=== PATIENT | female | born 1955 | race Caucasian/White ===

== ENCOUNTER 2018-01-26 15:47 | Inpatient (IN) | payer OTHER ==
[~2018-01-26] VITALS: Ht 161.3 cm; Wt 108.2 kg
[2018-01-26 17:09] LABS: Anion Gap 11 (5-15); Blood Urea Nitrogen 11 mg/dL (7-18); Calcium 8.3 mg/dL (8.5-10.1); Carbon Dioxide 21 mmol/L (21-32); Chloride 105 mmol/L (98-107); Glucose 121 mg/dL (74-106); Lipase 148 U/L (73-393); Magnesium 2.2 mg/dL (1.6-2.6); Potassium 3.7 mmol/L (3.5-5.1); Sodium 137 mmol/L (136-145)
[2018-01-26 17:11] LABS: BUN/Creatinine Ratio 14.9; GFR African American 102 mL/min; GFR Non-African American 84 mL/min
[2018-01-26 17:13] LABS: Basophils # (auto) 0 uL; Basophils % (auto) 0.3 % (0.0-2.0); Eosinophils # (auto) 0 uL; Hematocrit 39.3 % (36.0-46.0); Lymphocytes # (auto) 1.1 uL; Monocytes # (auto) 0.9 uL; Red Cell Distribution Width 19.3 % (11.8-14.3)
[2018-01-26 17:15] LABS: Eosinophils % (auto) 0.2 % (0.0-7.0); Hemoglobin 12.6 g/dL (12.2-16.2); Lymphocytes % (auto) 9.2 % (10.0-50.0); Mean Corpuscular Hemoglobin 25.4 pg (28.0-32.0); Mean Corpuscular Hgb Conc. 32.2 g/dL (32.0-36.0); Mean Corpuscular Volume 78.9 fL (80.0-100.0); Monocytes % (auto) 7.6 % (0.0-12.0); Neutrophils % (auto) 82.7 % (37.0-80.0); Nucleated Red Blood Cells % 0.1 %; Platelet Count (auto) 301 10^3/uL (140-450); Red Blood Cells 4.98 10^6/uL (4.0-5.20); White Blood Cell 12.1 10^3/uL (4.4-10.8)
[2018-01-26 17:17] LABS: Alanine Aminotransferase 24 U/L (13-56); Alkaline Phosphatase 109 U/L (45-117); Amylase 33 U/L (25-115); Aspartate Aminotransferase 16 U/L (15-37); Bilirubin, Total 0.7 mg/dL (0.2-1.0); Total Protein 7.1 g/dL (6.4-8.2)
[2018-01-26] MEDS ORDERED: SODIUM CHLORIDE 0.9% 1,000 ML IVB ONE (17:35)
[2018-01-26 18:50] LABS: INR 0.91 (0.9-1.15); Partial Thromboplastin Time 29.2 sec (23.78-33.04); Prothrombin Time 9.8 sec (9.27-12.13)
[2018-01-26] MEDS ORDERED: IOHEXOL 350 MG/ML 100ML IJ ONE (20:12)
[2018-01-26] MEDS ORDERED: ACETAMINOPHEN 325 MG TAB PO ONE (20:30)
[2018-01-26] MEDS ORDERED: ENOXAPARIN SOD 120 MG/0.8 ML SYRINGE SC ONE (21:30)
[2018-01-26] MEDS ORDERED: ALBUTEROL SULF 2.5 MG/0.5ML(0.5%) NEB SOLN NEB PRN (21:30)
[2018-01-26] MEDS ORDERED: ONDANSETRON HCL 4 MG/2 ML VIAL IV PRN (21:30)
[2018-01-26] MEDS ORDERED: TEMAZEPAM 15 MG CAP PO PRN (21:30)
[2018-01-26] MEDS ORDERED: HYDROcodone-ACET 5/325MG TAB PO PRN (21:30)
[2018-01-26] MEDS ORDERED: NITROGLYCERIN 0.4 MG SL TAB SL PRN (21:30)
[2018-01-26] MEDS ORDERED: MORPHINE SULFATE 4 MG/ML SYR/VIAL IV PRN (21:30)
[2018-01-26 21:33] LABS: Urine Bacteria NONE SEEN /hpf (None Seen); Urine Blood Negative /uL (Negative); Urine Mucus FEW (None Seen); Urine Specific Gravity 1.031 (1.001-1.035); Urine WBC 3 /hpf (0 - 5)
[2018-01-26] MEDS: ENOXAPARIN SOD 120 MG/0.8 ML SYRINGE SC SCH (22:00)
[2018-01-26] MEDS: FAMOTIDINE 20 MG TAB PO SCH (22:00)
[2018-01-26] MEDS ORDERED: WARFARIN SODIUM 10 MG TAB PO ONE (22:15)
[2018-01-26] MEDS ORDERED: traMADol HCL 50 MG TAB PO ONE (22:30)
[2018-01-26 22:54] VITALS: BP 133/76
[2018-01-27] MEDS: ACETAMINOPHEN 325 MG TAB PO PRN (01:32)
[2018-01-27 01:46] VITALS: BP 129/67
[2018-01-27] MEDS ORDERED: CALC1TAB64 PO (02:15)
[2018-01-27] MEDS ORDERED: OMEP20TA PO (02:15)
[2018-01-27] MEDS ORDERED: CYAN100L PO (02:15)
[2018-01-27] MEDS ORDERED: RANI-185 PO (02:15)
[2018-01-27] MEDS ORDERED: traMADol HCL 50 MG TAB PO ONE (03:00)
[2018-01-27 05:00] VITALS: BP 124/77
[2018-01-27 06:50] LABS: INR 0.95 (0.9-1.15); Partial Thromboplastin Time 34.1 sec (23.78-33.04); Prothrombin Time 10.2 sec (9.27-12.13)
[2018-01-27 07:08] LABS: Albumin 2.7 g/dL (3.4-5.0); BUN/Creatinine Ratio 12.9; Calcium 8.2 mg/dL (8.5-10.1); Total Protein 6.6 g/dL (6.4-8.2)
[2018-01-27 07:29] LABS: Basophils # (auto) 0 uL; Eosinophils # (auto) 0 uL; Eosinophils % (auto) 0.5 % (0.0-7.0); Hemoglobin 12.1 g/dL (12.2-16.2); Red Blood Cells 4.72 10^6/uL (4.0-5.20)
[2018-01-27 07:31] LABS: Basophils % (auto) 0.3 % (0.0-2.0); Hematocrit 37.9 % (36.0-46.0); Lymphocytes % (auto) 11.9 % (10.0-50.0); Mean Corpuscular Hemoglobin 25.7 pg (28.0-32.0); Mean Corpuscular Volume 80.2 fL (80.0-100.0); Monocytes # (auto) 0.7 uL; Monocytes % (auto) 8.5 % (0.0-12.0); Neutrophils # (auto) 6.8 uL; Neutrophils % (auto) 78.8 % (37.0-80.0); Nucleated Red Blood Cells % 0.1 %; Platelet Count (auto) 257 10^3/uL (140-450); White Blood Cell 8.7 10^3/uL (4.4-10.8)
[2018-01-27 09:00] VITALS: BP 119/68
[2018-01-27] MEDS: traMADol HCL 50 MG TAB PO PRN ×2 (10:38→21:54)
[2018-01-27] MEDS: ENOXAPARIN SOD 120 MG/0.8 ML SYRINGE SC SCH ×2 (10:39→21:54)
[2018-01-27] MEDS: FAMOTIDINE 20 MG TAB PO SCH ×2 (10:42→21:54)
[2018-01-27 12:00] VITALS: BP 123/76
[2018-01-27] MEDS ORDERED: LIDOCAINE 1% HCL (LOCAL ANESTH.) INJ 20ML MDV ONE (13:42)
[2018-01-27 17:00] VITALS: BP 124/72
[2018-01-27] MEDS ORDERED: WARFARIN SODIUM 10 MG TAB PO ONE (17:00)
[2018-01-27 22:00] VITALS: BP 127/67
[2018-01-28 05:00] VITALS: BP 130/73
[2018-01-28] MEDS: ACETAMINOPHEN 325 MG TAB PO PRN ×2 (06:40→18:30)
[2018-01-28] MEDS: traMADol HCL 50 MG TAB PO PRN ×2 (06:40→18:30)
[2018-01-28 06:57] LABS: INR 1.91 (0.9-1.15); Prothrombin Time 19.7 sec (9.27-12.13)
[2018-01-28 09:00] VITALS: BP 104/79
[2018-01-28] MEDS ORDERED: ENOXAPARIN SOD 100 MG/1 ML SYRINGE SC SCH (10:00)
[2018-01-28] MEDS: FAMOTIDINE 20 MG TAB PO SCH ×2 (10:25→21:46)
[2018-01-28 12:35] VITALS: BP 116/71
[2018-01-28] MEDS: APIXABAN 5 MG TAB PO SCH ×2 (12:45→21:46)
[2018-01-28 17:00] VITALS: BP 121/78
[2018-01-28] MEDS ORDERED: LORATADINE 10 MG TAB PO PRN (18:30)
[2018-01-28 21:44] VITALS: BP 135/84
[2018-01-29] MEDS: ACETAMINOPHEN 325 MG TAB PO PRN ×2 (00:20→22:58)
[2018-01-29 05:00] VITALS: BP 133/72
[2018-01-29 09:00] VITALS: BP 130/78
[2018-01-29] MEDS ORDERED: LORATADINE 10 MG TAB PO SCH (10:00)
[2018-01-29] MEDS: ALBUTEROL SULF 2.5 MG/0.5ML(0.5%) NEB SOLN NEB SCH ×2 (10:29→22:24)
[2018-01-29] MEDS: traMADol HCL 50 MG TAB PO PRN ×2 (11:00→20:20)
[2018-01-29] MEDS: APIXABAN 5 MG TAB PO SCH ×2 (11:18→22:41)
[2018-01-29] MEDS: FAMOTIDINE 20 MG TAB PO SCH ×2 (11:19→20:18)
[2018-01-29 13:24] VITALS: BP 133/77
[2018-01-29 17:01] VITALS: BP 138/87
[2018-01-29 19:40] VITALS: BP 138/87
[2018-01-29 22:00] VITALS: BP 144/84
[2018-01-29] MEDS ORDERED: PANTOPRAZOLE 40 MG TAB PO SCH (22:05)
[2018-01-30] MEDS: traMADol HCL 50 MG TAB PO PRN ×2 (02:21→09:31)
[2018-01-30 05:00] VITALS: BP 139/81
[2018-01-30] MEDS: ALBUTEROL SULF 2.5 MG/0.5ML(0.5%) NEB SOLN NEB SCH (06:43)
[2018-01-30] MEDS: APIXABAN 5 MG TAB PO SCH (09:30)
[2018-01-30 13:00] VITALS: BP 138/84
== END 2018-01-30 16:36 | disposition home or self-care (01) | DRG 176 ==
LOC: ER 15:59 → TELE 16:00 → TELE-WESTW 23:35
PROVIDERS: ADMIT Nurse Practitioner; ATTEND Family Medicine
DX: I26.99 Other pulmonary embolism without acute cor pulmonale (principal); J98.11 Atelectasis; Z68.41 Body mass index [BMI] 40.0-44.9, adult; K21.9 Gastro-esophageal reflux disease without esophagitis; E66.01 Morbid (severe) obesity due to excess calories; E86.0 Dehydration; I25.10 Atherosclerotic heart disease of native coronary artery without angina pectoris; Z79.01 Long term (current) use of anticoagulants; Z82.49 Family history of ischemic heart disease and other diseases of the circulatory system; Z90.49 Acquired absence of other specified parts of digestive tract; Z93.3 Colostomy status; Z88.8 Allergy status to other drugs, medicaments and biological substances; Z88.2 Allergy status to sulfonamides
CPT/HCPCS: 36415; 71046; 71275; 80053; 81001; 82150; 83690; 83735; 83880; 84484; 85025; 85379; 85610; 85730; 93005; 93306; 93970; 94640; 94761; 96360; J2001

== ENCOUNTER 2022-03-12 16:19 | Emergency (ER) | payer OTHER ==
[~2022-03-12] VITALS: Ht 160 cm; Wt 108.6 kg
[~2022-03-12 16:19] MED LIST: CALC1TAB64 PO; CYAN100L PO; OMEP20TA PO; RANI-185 PO
[2022-03-12 18:06] LABS: Basophils # (auto) 0.1 10 ^3/uL (0-0.2); Eosinophils # (auto) 0.5 10 ^3/uL (0-0.8); Eosinophils % (auto) 7.9 % (0.0-7.0); Hematocrit 37.3 % (36.0-46.0); Hemoglobin 11.6 g/dL (12.2-16.2); Lymphocytes # (auto) 1.3 10 ^3/uL (0.4-5.4); Lymphocytes % (auto) 20.1 % (10.0-50.0); Mean Corpuscular Hemoglobin 23.3 pg (28.0-32.0); Mean Corpuscular Hgb Conc. 31.2 g/dL (32.0-36.0); Mean Corpuscular Volume 74.6 fL (80.0-100.0); Monocytes # (auto) 0.8 10 ^3/uL (0-1.3); Monocytes % (auto) 12.2 % (0.0-12.0); Neutrophils # (auto) 3.8 10 ^3/uL (1.6-8.6); Neutrophils % (auto) 58.8 % (37.0-80.0); Red Cell Distribution Width 15.8 % (11.8-14.3); White Blood Cell 6.6 10^3/uL (4.4-10.8)
[2022-03-12 18:21] LABS: Albumin 3.3 g/dL (3.4-5.0); BUN/Creatinine Ratio 27.9; Calcium 8.5 mg/dL (8.5-10.1); Potassium 3.9 mmol/L (3.5-5.1)
[2022-03-12 18:24] LABS: Bilirubin, Total 0.6 mg/dL (0.2-1.0); Total Protein 6.6 g/dL (6.4-8.2)
[2022-03-12 20:30] VITALS: BP 152/83
== END 2022-03-12 20:38 | disposition home or self-care (01) ==
LOC: ER 16:19
DX: I50.9 Heart failure, unspecified (principal); R42 Dizziness and giddiness; K21.9 Gastro-esophageal reflux disease without esophagitis; Z98.51 Tubal ligation status
CPT/HCPCS: 36415; 70450; 80053; 83605; 83880; 84484; 85025

== ENCOUNTER 2022-09-10 13:37 | Emergency (ER) | payer OTHER ==
[~2022-09-10] VITALS: Ht 160 cm; Wt 93.0 kg
[2022-09-10 14:37] VITALS: BP 147/78
[2022-09-10 15:05] LABS: Urine Bacteria MANY /hpf (None Seen); Urine Blood Negative /uL (Negative); Urine Mucus FEW (None Seen); Urine Specific Gravity 1.031 (1.001-1.035); Urine WBC 16 /hpf (0 - 5)
[2022-09-10] MEDS ORDERED: KETOROLAC TROMETH 60MG/2ML VIAL IM ONE (15:30)
[2022-09-10] MEDS ORDERED: TRAM-297 PO (16:06)
[2022-09-10] MEDS ORDERED: CIPR-173 PO (16:06)
== END 2022-09-10 16:13 | disposition home or self-care (01) ==
LOC: ER 13:37
DX: M51.36 Other intervertebral disc degeneration, lumbar region (principal); N39.0 Urinary tract infection, site not specified
CPT/HCPCS: 72131; 81001; 96372; 99285; J1885

== ENCOUNTER 2022-09-24 18:39 | Emergency (ER) | payer OTHER ==
[~2022-09-24] VITALS: Ht 160 cm; Wt 90.0 kg
[~2022-09-24 18:39] MED LIST changes: +CIPR-173 PO; +TRAM-297 PO
[2022-09-24 19:20] VITALS: BP 131/77
[2022-09-24] MEDS ORDERED: TRAM50TA2 PO (20:05)
== END 2022-09-24 20:19 | disposition home or self-care (01) ==
LOC: ER 18:39
DX: I10 Essential (primary) hypertension (principal); K21.9 Gastro-esophageal reflux disease without esophagitis; Z76.0 Encounter for issue of repeat prescription; Z90.710 Acquired absence of both cervix and uterus

== ENCOUNTER → 2022-11-28 | Emergency (ER) | payer OTHER ==
[~2022-11-28] VITALS: Ht 160 cm; Wt 95.7 kg
[~2022-11-28] MED LIST changes: +TRAM50TA2 PO
[2022-11-28 11:32] VITALS: BP 155/84
== END | disposition left against medical advice (07) ==
LOC: ER 11:10
DX: N39.8 Other specified disorders of urinary system (principal); Z53.21 Procedure and treatment not carried out due to patient leaving prior to being seen by health care provider

== ENCOUNTER 2025-03-13 13:38 | Emergency (ER) | payer OTHER ==
[~2025-03-13] VITALS: Ht 160 cm; Wt 105.1 kg
[2025-03-13 13:42] VITALS: BP 129/90; PULSE 120; RESP 18; TEMP 98.3; O2SAT 98
== END 2025-03-13 14:30 | disposition left against medical advice (07) ==
LOC: ER 13:38
DX: R10.2 Pelvic and perineal pain (principal); Z53.21 Procedure and treatment not carried out due to patient leaving prior to being seen by health care provider

== ENCOUNTER 2025-06-15 11:13 | Emergency (ER) | payer OTHER ==
[~2025-06-15] VITALS: Ht 160 cm; Wt 106.5 kg
--- NOTE | 2025-06-15 12:46 | DVH ---
XY CHEST TWO VIEWS ROUTINE CLINICAL HISTORY: COUGH COMPARISON: None TECHNIQUE: Frontal and lateral view of the chest was obtained FINDINGS: Lines and Tubes: None Lungs: No focal consolidation. Pleura: No effusion. No pneumothorax. Cardiomediastinal contours: Unremarkable Bones: No acute osseous abnormality. IMPRESSION: 1. No acute cardiopulmonary disease.
[2025-06-15 13:00] VITALS: BP 135/78; PULSE 70; RESP 18; TEMP 98.3; O2SAT 96
--- NOTE | 2025-06-15 13:02 | ED.PDOC ---
SOB-HPI HPI Comments A 70 YEAR OLD FEMALE PRESENTS TO THE ED WITH COMPLAINT OF COUGH AND SINUS CONGESTION. PATIENT STATES SHE HAS BEEN EXPERIENCING A COUGH AND SINUS CONGESTION FOR THE PAST 4 DAYS. PATIENT DENIES FEVER, CHILLS, SHORTNESS OF BREATH, CHEST PAIN, ABDOMINAL PAIN, NAUSEA, VOMITING, HEADACHE, OR OTHER COMPLAINTS. NO OTHER SYMPTOMS OR MODIFYING FACTORS AT THIS TIME. PATIENT IS ALERT, ORIENTED X 4, AND HAS STEADY GAIT. Chief Complaint: Cough Time Seen by MD: 11:40 Primary Care Provider: FRANCHESCA Ann notes: Nurses Notes, Medications, Allergies Information Source: Patient Mode of Arrival: Ambulatory Severity: Moderate Timing: Days Duration: Since onset, Days Context: Spontaneous Onset PE Risk Factors: None History of: None Prehospital treatment: None Modifying Factors: Nothing Associated Signs and Symptoms: Cough, Nasal Congestion If cough with SOB: Productive Past Medical History PAST MEDICAL HISTORY: GERD Surgical History: Hysterectomy STAFF INTERPRETER History: Denies all STAFF INTERPRETER Hx Family History Family History: No family hx of HTN Social History Smoker: Non-Smoker Alcohol: Denies ETOH Use Drugs: Denies Drug Use Lives In: Home Constitutional: denies: chills, diaphoresis, fatigue, fever, malaise, sweats, weakness, others EENTM: reports: nose congestion, throat pain; denies: blurred vision, double vision, ear bleeding, ear discharge, ear drainage, ear pain, ear ringing, eye pain, eye redness, hearing loss, mouth pain, mouth swelling, nasal discharge, nose bleeding, nose pain, photophobia, tearing, throat swelling, voice changes, others Respiratory: reports: cough; denies: hemoptysis, orthopnea, SOB at rest, shortness of breath, SOB with excertion, stridor, wheezing, others Cardiovascular: denies: chest pain, dizzy spells, diaphoresis, Dyspnea on exertion, edema, irregular heart beat, left arm pain, lightheadedness, palpitations, PND, syncope, others Gastrointestinal: denies: abdomen distended, abdominal pain, blood streaked bowels, constipated, diarrhea, dysphagia, difficulty swallowing, hematemesis, melena, nausea, poor appetite, poor fluid intake, rectal bleeding, rectal pain, vomiting, others Genitourinary: denies: abnormal vagina bleeding, burning, dyspareunia, dysuria, flank pain, frequency, hematuria, incontinence, pain, , vagina discharge, urgency, others Neurological: denies: dizziness, fainting, headache, left sided numbness, left sided weakness, numbness, paresthesia, pre-existing deficit, right sided numbness, right sided weakness, seizure, speech problems, tingling, tremors, weakness, others Musculoskeletal: denies: back pain, gout, joint pain, joint swelling, muscle pain, muscle stiffness, neck pain, others Integumetry: denies: bruises, change in color, change in hair/nails, dryness, laceration, lesions, lumps, rash, wounds, others Allergic/Immunocompromised: denies: Difficulty Healing, Frequent Infections, Hives, Itching, others Hematologic/Lymphatic: denies: anemia, blood clots, easy bleeding, easy bruising, swollen glands, others Psychiatric: denies: anxiety, bipolar disorder, depression, hopeless, panic disorder, schizophrenia, sleepless, suicidal, others All Other Systems: Reviewed and Negative Physical Exam General Appearance: No Apparent Distress, Normal HEENT: Normal ENT Inspection, PERRL/EOMI, Pharynx Normal, Sinuses (TENDERNESS MAXILLARY SINUSES WITH POST NASAL DRIP. ), TMs Normal Neck: Full Range of Motion, Non-Tender, Normal, Normal Inspection Respiratory: Chest Non-Tender, Lungs Clear, No Accessory Muscle Use, No Respiratory Distress, Normal Breath Sounds Cardiovascular: No Edema, No JVD, No Murmur, No Gallop, Normal Peripheral Pulses, Regular Rate/Rhythm Breast Exam: Deferred Gastrointestinal: No Organomegaly, Non Tender, No Pulsatile Mass, Normal Bowel Sounds, Soft Genitalia: Deferred Pelvic: Deferred Rectal: Deferred Extremities: No calf tenderness, Normal capillary refill, Normal inspection, Normal range of motion, Non-tender, No pedal edema Musculoskeletal : Apperance: Normal Neurologic: Alert, title specialist II-XII nml as Tested, No Motor Deficits, Normal Affect, Normal Mood, No Sensory Deficits Cerebellar Function: Normal Reflexes: Normal Skin: Dry, Normal Color, Warm Peripheral Pulses: 2+ carotid (R), 2+ carotid (L) Lymphatic: No Adenopathy Was a procedure done? Was a procedure done?: No Differential Dx Differential Diagnosis: Bronchitis, Pneumonia, Sinusitis, Allergic Rhinitis, Otitis Media, Pharyngitis, URI X-Ray, Labs, Meds, VS Vital Signs Date Time Temp Pulse Resp B/P (MAP) Pulse Ox O2 Delivery O2 Flow Rate FiO2 06/15/25 11:16 98.3 70 18 135/78 96 98.3 ORDERING PHYSICIAN: GISSELL LUNA PROCEDURE(s): CXR2 - CHEST TWO VIEWS ROUTINE REASON: COUGH ORDER NUMBER(s): [id number], ACCESSION NUMBER(s): [id number] XY CHEST TWO VIEWS ROUTINE CLINICAL HISTORY: COUGH COMPARISON: None TECHNIQUE: Frontal and lateral view of the chest was obtained FINDINGS: Lines and Tubes: None Lungs: No focal consolidation. Pleura: No effusion. No pneumothorax. Cardiomediastinal contours: Unremarkable Bones: No acute osseous abnormality. IMPRESSION: 1. No acute cardiopulmonary disease. ATED BY: HARDIK ELLIS Jr., DO DICTATED DATE/TIME: 06/15/251243 SIGNED BY: HARDIK ELLIS Jr., DO SIGNED DATE/TIME: 06/15/251243 CC: X-Ray, Labs, Meds, VS Comment EXTERNAL MEDICAL RECORDS REVIEWED: [NONE] INDEPENDENT HISTORIANS: [NONE] SOCIAL DETERMINANTS OF HEALTH: [NONE] LABS ORDERED: NONE REVIEWED AND INTERPRETED RESULTS: NONE IMAGING ORDERED: XR CHEST TREATMENTS ORDERED: NONE PROCEDURES PERFORMED: NONE CRITICAL CARE TIME: NONE I HAVE DISCUSSED THE PATIENT WITH THE ATTENDING PHYSICIAN DR. PACHECO AND HE AGREES WITH THE PATIENT'S PLAN OF CARE AND DISPOSITION. BASED ON HISTORY OF PRESENT ILLNESS, AND PHYSICAL EXAM, PATIENT WILL BE DISCHARGED HOME. DISCUSSED PLAN FOR DISCHARGE HOME WITH RX [PREDNISONE, LEVAQUIN 500 MG, AND ALBUTEROL INHALER]. MEDICATION WARNINGS GIVEN. SHARED DECISION MAKING: DISCUSSED WITH PATIENT THAT THEIR WORKUP WAS NORMAL. PATIENT INSTRUCTED TO FOLLOW UP WITH PRIMARY CARE PROVIDER IN 1-2 DAYS FOR RE- EVALUATION OF SYMPTOMS. PATIENT VERBALIZES UNDERSTANDING TO RETURN TO ED FOR NEW OR WORSENING SYMPTOMS OR IF FOLLOW UP WITH PCP CANNOT BE OBTAINED. PATIENT FEELS COMFORTABLE GOING HOME AT THIS TIME. ALL QUESTIONS ADDRESSED AT TIME OF DISCHARGE. Images Reviewed?: Images reviewed and evaluated by me Time of 1ST Reevaluation: 13:08 Reevaluation 1ST: Improved Patient Education/Counseling: Diagnosis, Treatment, Need For Follow Up Family Education/Counseling: Diagnosis, Treatment, Need For Follow Up Medical Screening: No EMC Exist At This Time SEPSIS Sepsis Screen Date sepsis recognized/suspect: Jun 15, 2025 Time Sepsis recognized/suspect: 1117 Recent Procedure: No On Antibiotic Therapy: No Respiratory Rate >20: No Heart Rate >90: No Temp<36 C (96.8 F) or >38.3 C: No SBP <90 or MAP <65 mmHG: No New Acute Mental Status Change: No Is the patient on CPAP, BIPAP,: No Physician Orders Chest Two Views Routine (06/15/25 12:09) Vital Signs Date Time Temp Pulse Resp B/P (MAP) Pulse Ox O2 Delivery O2 Flow Rate FiO2 06/15/25 11:16 98.3 70 18 135/78 96 98.3 Departure 1 Departure Time of Disposition: 13:08 Impression: Primary Impression: Acute sinusitis Qualified Codes: J01.01 - Acute recurrent maxillary sinusitis Disposition: HOME / SELF CARE / HOMELESS Condition: Stable Additional Instructions: FOLLOW-UP WITH PCP IN 1 TO 2 DAYS. TAKE MEDICATIONS PRESCRIBED. RETURN TO ED FOR ANY NEW OR WORSENING SYMPTOMS. e-Prescriptions Promethazine-Dm (Promethazine Dm 6.25-15 mg/5Ml) 1 Claudine Claudine 5 ML PO TID, #160 ML Prov: GISSELL LUNA 06/15/25 Albuterol Sulfate (Albuterol Sulfate Hfa) 108 Mcg/Act Aer 108 MCG IN TID, #120 AER Prov: GISSELL LUNA 06/15/25 Prednisone (Prednisone) 20 Mg Tab 60 MG PO DAILY, #21 TAB Prov: GISSELL LUNA 06/15/25 Levofloxacin Hemihydrate (LEVAQUIN 500 MG) 500 Mg Tab 1 TAB PO DAILY, #10 TAB Prov: GISSELL LUNA 06/15/25 Discharged With: Self Critical Care Note Critical Care Time?: No Stability Stability form required: No Heart Score Heart Score: Heart Score Response (Comments) Value History N/A 0 EKG N/A 0 Age N/A 0 Risk Factors N/A 0 Troponin N/A 0 Total 0 I personally scribed for GISSELL LUNA ([email or web address]) on 06/15/25 at 13:02. Electronically submitted by Eric Loaiza ([email or web address]). GISSELL LUNA Jun 15, 2025 13:02
[2025-06-15] MEDS ORDERED: PRED20TA2 PO (13:11)
[2025-06-15] MEDS ORDERED: PROM1SOL4 PO (13:11)
[2025-06-15] MEDS ORDERED: ALBU108A5 IN (13:11)
[2025-06-15] MEDS ORDERED: LEVO500T91 PO (13:11)
== END 2025-06-15 13:13 | disposition home or self-care (01) ==
LOC: ER 11:13
DX: J01.90 Acute sinusitis, unspecified (principal); Z90.710 Acquired absence of both cervix and uterus; Z79.899 Other long term (current) drug therapy
CPT/HCPCS: 71046